=== PATIENT | male | born 1990 | race Hispanic/Latino ===

== ENCOUNTER 2020-01-20 12:49 | Emergency (ER) | payer OTHER, SELFPAY ==
--- OUTSIDE RECORDS SUMMARY | 2020-01-20 12:52 | XMS REPORT | Continuity of Care Document ---
:1990 Author Organization [facility] t Address [address] [place] [address] Care Team Providers Name Role Phone Aeysha FIELDS PHD, [facility] Attending Clinician [phone] Problems This patient has no known problems. Allergies, Adverse Reactions, Alerts This patient has no known allergies or adverse reactions. Medications This patient has no known medications. Procedures This patient has no known procedures. Encounters Start End Encounter Admission Attending Care Care Encounter Source Date/Time Date/Time Type Type Clinicians Facility Department ID 2018-11-07 2018-11-07 Office VIRGIL Hodge [id number] 14:00:49 15:04:26 Visit [facility] [id number] [facility] [id number] Results This patient has no known results.
[2020-01-20 16:23] LABS: Basophils % 0.4 % (0-1.3); Hematocrit 43.3 % (39.6-49.0); Lymphocytes % 10.3 % (15.3-44.8); MPV 6.8 fL (7.6-11.3); RBC Red Blood Cell Count 5.31 M/uL (4.33-5.43)
[2020-01-20] MEDS ORDERED: NA CHLORIDE 0.9% 1,000 ML ONE (16:24)
[2020-01-20] MEDS ORDERED: ONDANSETRON 4 MG/2 ML VIAL ONE (16:24)
[2020-01-20] MEDS ORDERED: FAMOTIDINE 20 MG/2 ML VIAL IV ONE (16:24)
[2020-01-20 16:38] LABS: Albumin 3.9 g/dL (3.4-5.0); Bilirubin Direct 0.2 mg/dL (0-0.2); Bilirubin Total 0.8 mg/dL (0.2-1.0); Potassium 3.5 mmol/L (3.5-5.1); Protein, Total 8.1 g/dL (6.4-8.2)
--- NOTE | 2020-01-20 16:47 | ER ---
Nurse's Notes [facility] Name: Francisco J Ash Age: 29 yrs Sex: Male : 1990 Arrival Date: 01/20/2020 Time: 12:51 Bed 28 Private MD: Diagnosis: Nausea and vomiting;Diarrhea, unspecified Presentation: 01/19 13:01 Chief complaint: Patient states: abd pain, nausea, vomitng and diarrhea since Saturday dm5 Pm. Pt reports vomiting 4 times since midnight and 6 instances of diarrhea since midnight. Coronavirus screen: Client denies travel out of the [place] in the last 14 days. diarrhea, nausea, vomiting. Client presents with at least one sign or symptom that may indicate coronavirus-19. Standard/surgical mask placed on the client. Ebola Screen: Patient negative for fever greater than or equal to 101.5 degrees Fahrenheit, and additional compatible Ebola Virus Disease symptoms Patient denies exposure to infectious person. Patient denies travel to an Ebola-affected area in the 21 days before illness onset. No symptoms or risks identified at this time. Initial Sepsis Screen: Does the patient meet any 2 criteria? HR > 90 bpm. No. Patient's initial sepsis screen is negative. Does the patient have a suspected source of infection? Yes: Acute abdominal pain. Risk Assessment: Do you want to hurt yourself or someone else? Patient reports no desire to harm self or others. Onset of symptoms was January 18, 2020. 13:01 Method Of Arrival: Ambulatory dm5 13:01 Acuity: BEATRIZ 3 dm5 Historical: - Allergies: 13:03 No Known Allergies; dm5 - Immunization history:: Adult Immunizations up to date. - Social history:: Smoking status: Patient denies any tobacco usage or history of. Screenin:06 Abuse screen: Denies threats or abuse. Denies injuries from another. Nutritional aj1 screening: No deficits noted. Tuberculosis screening: No symptoms or risk factors identified. 17:47 Fall Risk None identified. aj1 Assessment: 16:06 General: Appears in no apparent distress. comfortable, Behavior is calm, cooperative, aj1 appropriate for age. Pain: Denies pain. Neuro: Level of Consciousness is awake, alert, obeys commands, Oriented to person, place, time, situation. Cardiovascular: Patient's skin is warm and dry. Respiratory: Airway is patent Respiratory effort is even, unlabored, Respiratory pattern is regular, symmetrical. GI: Abdomen is non-distended, Bowel sounds present X 4 quads. Abd is soft and non tender X 4 quads. Reports diarrhea, incontinence, nausea, vomiting, and abdominal pain that has now resolved. : No signs and/or symptoms were reported regarding the genitourinary system. EENT: No signs and/or symptoms were reported regarding the EENT system. Derm: No signs and/or symptoms reported regarding the dermatologic system. Skin is pink, warm \T\ dry. normal. Musculoskeletal: No signs and/or symptoms reported regarding the musculoskeletal system. Circulation, motion, and sensation intact. 16:45 Reassessment: Patient appears in no apparent distress at this time. No changes from aj1 previously documented assessment. Patient and/or family updated on plan of care and expected duration. Pain level reassessed. Patient is alert, oriented x 3, equal unlabored respirations, skin warm/dry/pink. 17:25 Reassessment: PO Challenge initiated. aj1 17:47 Reassessment: Patient tolerated PO challenge. aj1 Vital Signs: 13:01 BP 131 / 87; Pulse 108; Resp 18; Temp 98.2; Pulse Ox 96% on R/A; Weight 117.93 kg; dm5 Height 6 ft. 1 in. (185.42 cm); Pain 5/10; 16:06 BP 121 / 79; Pulse 100; Resp 18; Pulse Ox 96% on R/A; aj1 16:45 BP 124 / 83; Pulse 96; Resp 18; Pulse Ox 97% on R/A; aj1 13:01 Body Mass Index 34.30 (117.93 kg, 185.42 cm) 5 ED Course: 12:51 Patient arrived in ED. as 13:03 Triage completed. dm5 15:07 Dieudonne Maier PA is PHCP. cp 15:07 Maximus Stern MD is Attending Physician. cp 15:09 Melly Bradley, EDUARDA is Primary Nurse. aj1 16:06 Patient has correct armband on for positive identification. Bed in low position. Call aj1 light in reach. Side rails up X 1. Pulse ox on. NIBP on. 16:06 No provider procedures requiring assistance completed. Inserted saline lock: 20 gauge aj1 in left antecubital area, using aseptic technique. Blood collected. 17:47 Arm band placed on. aj1 17:47 IV discontinued, intact, bleeding controlled, No redness/swelling at site. Pressure aj1 dressing applied. Administered Medications: 16:13 Drug: Pepcid 20 mg Route: IVP; Site: left antecubital; aj1 16:14 Drug: Zofran (Ondansetron) 4 mg Route: IVP; Site: left antecubital; aj1 16:14 Drug: NS 0.9% 1000 ml Route: IV; Rate: 1 bolus; Site: left antecubital; aj1 Outcome: 16:46 Discharge ordered by MD. cp 17:47 Discharged to home ambulatory. aj1 17:47 Condition: good 17:47 Discharge instructions given to patient, Instructed on discharge instructions, follow up and referral plans. medication usage, Demonstrated understanding of instructions, follow-up care, medications, Prescriptions given X 1. 17:48 Patient left the ED. aj1 Signatures: Melly Bradley RN RN aj1 Elizabeth Pavon RN RN dm5 Taina Rg Corey, PA PA cp
--- NOTE | 2020-01-20 16:47 | EDPHYS ---
Physician Documentation [facility] Name: Francisco J Ash Age: 29 yrs Sex: Male : 1990 Arrival Date: 01/20/2020 Time: 12:51 Bed 28 Private MD: ED Physician Maximus Stern HPI: 01/19 15:20 This 29 yrs old Male presents to ER via Ambulatory with complaints of cp Vomiting/Diarrhea, Abdominal Pain. 15:20 The patient presents to the emergency department with nausea, that is mild, vomiting, cp that is intermittent, described as bilious, diarrhea, that is intermittent. Onset: The symptoms/episode began/occurred 2 day(s) ago. Possible causes: bad food exposure, possibly bad restaurant food. Historical: - Allergies: 13:03 No Known Allergies; dm5 - Immunization history:: Adult Immunizations up to date. - Social history:: Smoking status: Patient denies any tobacco usage or history of. ROS: 15:30 Constitutional: Negative for body aches, chills, fever, poor PO intake. cp 15:30 Eyes: Negative for injury, pain, redness, and discharge. cp 15:30 ENT: Negative for drainage from ear(s), ear pain, sore throat, difficulty swallowing, difficulty handling secretions. 15:30 Cardiovascular: Negative for chest pain, palpitations. 15:30 Respiratory: Negative for cough, shortness of breath, wheezing. 15:30 Abdomen/GI: Positive for nausea, vomiting, and diarrhea, Negative for abdominal pain, constipation, hematemesis, black/tarry stool, rectal bleeding. 15:30 Skin: Negative for rash. 15:30 Neuro: Negative for altered mental status, headache, weakness. 15:30 All other systems are negative. Exam: 15:35 Constitutional: The patient appears in no acute distress, alert, awake, comfortable, cp non-toxic, well developed, well nourished. 15:35 Head/Face: Normocephalic, atraumatic. cp 15:35 Eyes: Periorbital structures: appear normal, Conjunctiva: normal, no exudate, no injection, Sclera: no appreciated abnormality, Lids and lashes: appear normal, bilaterally. 15:35 ENT: External ear(s): are unremarkable, Nose: is normal, Posterior pharynx: Airway: no evidence of obstruction, patent. 15:35 Chest/axilla: Inspection: normal, Palpation: is normal, no crepitus, no tenderness. 15:35 Cardiovascular: Rate: tachycardic, Rhythm: regular. 15:35 Respiratory: the patient does not display signs of respiratory distress, Respirations: normal, no use of accessory muscles, no retractions, labored breathing, is not present, Breath sounds: are clear throughout, no decreased breath sounds. 15:35 Abdomen/GI: Inspection: abdomen appears normal, Bowel sounds: active, all quadrants, Palpation: abdomen is soft and non-tender, in all quadrants, rebound tenderness, is not appreciated, voluntary guarding, is not appreciated, involuntary guarding, is not appreciated. 15:35 Back: pain, is absent, ROM is normal. Vital Signs: 13:01 BP 131 / 87; Pulse 108; Resp 18; Temp 98.2; Pulse Ox 96% on R/A; Weight 117.93 kg; dm5 Height 6 ft. 1 in. (185.42 cm); Pain 5/10; 16:06 BP 121 / 79; Pulse 100; Resp 18; Pulse Ox 96% on R/A; aj1 16:45 BP 124 / 83; Pulse 96; Resp 18; Pulse Ox 97% on R/A; aj1 13:01 Body Mass Index 34.30 (117.93 kg, 185.42 cm) dm5 MDM: 15:11 Patient medically screened. 15:35 Differential diagnosis: gastritis, cholecystitis, pancreatitis, appendicitis, viral cp gastroenteritis, gastroenteritis. 16:45 Data reviewed: vital signs, nurses notes, lab test result(s), and as a result, I will cp discharge patient. 01/19 15:17 Order name: Basic Metabolic Panel; Complete Time: 16:43 cp 01/19 15: Order name: CBC with Diff; Complete Time: 16:29 cp 01/19 16:29 Interpretation: Normal except: MPV 6.8; MIRIAN% 81.7; LYM% 10.3. cp 01/19 15:17 Order name: Hepatic Function; Complete Time: 16:43 cp 01/19 15:17 Order name: Lipase; Complete Time: 16:43 01/19 15: Order name: IV Saline Lock; Complete Time: 16:05 01/19 15:17 Order name: Labs collected and sent; Complete Time: 16:05 cp 01/19 16:45 Order name: PO challenge; Complete Time: 17:37 cp Administered Medications: 16:13 Drug: Pepcid 20 mg Route: IVP; Site: left antecubital; aj1 16:14 Drug: Zofran (Ondansetron) 4 mg Route: IVP; Site: left antecubital; aj1 16:14 Drug: NS 0.9% 1000 ml Route: IV; Rate: 1 bolus; Site: left antecubital; aj Disposition: 18:59 Co-signature as Attending Physician, Maximus Stern MD. rn Disposition: 01/20/20 16:46 Discharged to Home. Impression: Nausea and vomiting, Diarrhea, unspecified. - Condition is Stable. - Discharge Instructions: Food Choices to Help Relieve Diarrhea, Adult, Diarrhea, Adult, Nausea and Vomiting, Adult. - Prescriptions for Zofran 4 mg Oral Tablet - take 1 tablet by ORAL route every 12 hours As needed; 20 tablet. - Work release form, Medication Reconciliation Form, Thank You Letter, Antibiotic Education, Prescription Opioid Use form. - Follow up: Private Physician; When: 2 - 3 days; Reason: Worsening of condition. - Problem is new. - Symptoms have improved. Signatures: Dispatcher [employer] EDMelly Bettencourt RN RN aj1 Elizabeth Pavon RN RN dm5 Maximus Stern MD MD rn Page, Corey, PA PA cp Corrections: (The following items were deleted from the chart) 17:48 16:46 01/20/2020 16:46 Discharged to Home. Impression: Nausea and vomiting; Diarrhea, aj1 unspecified. Condition is Stable. Forms are Medication Reconciliation Form, Thank You Letter, Antibiotic Education, Prescription Opioid Use. Follow up: Private Physician; When: 2 - 3 days; Reason: Worsening of condition. Problem is new. Symptoms have improved. cp
[2020-01-20 23:07] VITALS: TEMP 98.2
[2020-01-20 23:10] VITALS: BP 124/83; O2SAT 97
== END 2020-01-20 17:48 | disposition home or self-care (01) ==
LOC: ER 12:49
DX: R19.7 Diarrhea, unspecified (principal)
CPT/HCPCS: 36415; 80048; 80076; 83690; 85025; 96374; 96375; 99284; J2405; J7030

== ENCOUNTER 2020-01-24 07:51 | Emergency (ER) | payer SELFPAY ==
--- OUTSIDE RECORDS SUMMARY | 2020-01-24 07:57 | XMS REPORT | Continuity of Care Document ---
:1990 Author Organization [facility] t Address [address] [place] [address] Care Team Providers Name Role Phone Ayesha FIELDS PHD, [facility] Attending Clinician [phone] Problems This patient has no known problems. Allergies, Adverse Reactions, Alerts This patient has no known allergies or adverse reactions. Medications This patient has no known medications. Procedures This patient has no known procedures. Encounters Start End Encounter Admission Attending Care Care Encounter Source Date/Time Date/Time Type Type Clinicians Facility Department ID 2018-11-07 2018-11-07 Office VIRGIL Hodge [id number] 14:00:49 15:04:26 Visit [facility] [id number] [facility] [id number] Results This patient has no known results.
[2020-01-24] MEDS ORDERED: NA CHLORIDE 0.9% 1,000 ML ONE (08:32)
[2020-01-24] MEDS ORDERED: ONDANSETRON 4 MG/2 ML VIAL ONE (08:32)
[2020-01-24 09:01] LABS: ALT/SGPT 32 U/L (12-78); AST/SGOT 19 U/L (15-37); Albumin 3.9 g/dL (3.4-5.0); Alkaline Phosphatase 121 U/L (45-117); BUN Blood Urea Nitrogen 9 mg/dL (7-18); Bicarbonate 25 mmol/L (21-32); Bilirubin Direct 0.2 mg/dL (0-0.2); Bilirubin Total 0.8 mg/dL (0.2-1.0); Glucose Level 130 mg/dL (74-106); Lipase 81 U/L (73-393); Potassium 3.7 mmol/L (3.5-5.1); Protein, Total 8.3 g/dL (6.4-8.2); Sodium Level 136 mmol/L (136-145)
--- NOTE | 2020-01-24 09:36 | RAD REPORT ---
EXAM DESCRIPTION: CTAbdomen Pelvis W Contrast - 01/24/2020 9:31 am CLINICAL HISTORY: Abdominal pain. nausea/vomiting/diarrhea COMPARISON: <Comparisons> TECHNIQUE: Biphasic CT imaging of the abdomen and pelvis was performed with 100 ml non-ionic IV cont rast. All CT scans are performed using dose optimization technique as appropriate and may include automated exposure control or mA/KV adjustment according to patient size. FINDINGS: The lung bases are clear. The liver, spleen, pancreas, adrenal glands and kidneys are within normal limits. No bowel obstruction, free air, free fluid or abscess. Moderate colonic wall thickening suspicious fo r a moderate colitis. The appendix is not identified as a discrete structure, however, no secondary f indings of appendicitis are identified. No evidence of significant lymphadenopathy. No suspicious bony findings. IMPRESSION: Moderate colitis is suspected, most significant in the rectosigmoid colon.
[2020-01-24 10:13] LABS: Absolute Lymphocytes (CBC) 1.6 K/uL (0.7-4.9); Basophils % 0.4 % (0-1.3); Hematocrit 44.4 % (39.6-49.0); MPV 6.8 fL (7.6-11.3); RBC Red Blood Cell Count 5.42 M/uL (4.33-5.43)
--- NOTE | 2020-01-24 10:13 | EDPHYS ---
Physician Documentation [facility] Name: Francisco J Ash Age: 29 yrs Sex: Male : 1990 Arrival Date: 01/24/2020 Time: 07:55 Bed 4 Private MD: Melissa [place] ED Physician Maximus Stern HPI: 01/23 08:37 This 29 yrs old Male presents to ER via Ambulatory with complaints of rn Nausea/Vomiting/Diarrhea, Headache. 08:37 The patient presents to the emergency department with nausea, vomiting, diarrhea. rn 08:37 Onset: The symptoms/episode began/occurred 2 day(s) ago. Possible causes: unknown. The rn symptoms are aggravated by nothing. The symptoms are alleviated by nothing. Associated signs and symptoms: Pertinent positives: abdominal pain, diarrhea, nausea, vomiting, Pertinent negatives: anorexia, fever, GI bleeding. Severity of symptoms: At their worst the symptoms were moderate in the emergency department the symptoms have improved. The patient has not experienced similar symptoms in the past. The patient has been recently seen at the [facility] Emergency Department. Reports nausea/vomiting/diarrhea, seen here recently, bloodwork ok, states felt better, but still having nausea and diarrhea, work told him to come and get checked out again. Feels like symptoms are slowly improving. No fever. . Historical: - Allergies: 08:04 No Known Allergies; sv - Family history:: not pertinent. - Social history:: Smoking status: Patient denies any tobacco usage or history of. - Hospitalizations: : No recent hospitalization is reported. ROS: 08:37 Constitutional: Negative for fever, chills, and weight loss, Eyes: Negative for injury, rn pain, redness, and discharge, Neck: Negative for injury, pain, and swelling, Cardiovascular: Negative for chest pain, palpitations, and edema, Respiratory: Negative for shortness of breath, cough, wheezing, and pleuritic chest pain, Abdomen/GI: + abd pain/nausea/vomiting MS/Extremity: Negative for injury and deformity, Skin: Negative for injury, rash, and discoloration, Neuro: Negative for weakness, numbness, tingling, and seizure. Exam: 08:37 Constitutional: This is a well developed, well nourished patient who is awake, alert, rn and in no acute distress. Head/Face: Normocephalic, atraumatic. ENT: MMM Neck: Trachea midline, no thyromegaly or masses palpated, and no cervical lymphadenopathy. Supple, full range of motion without nuchal rigidity, or vertebral point tenderness. No Meningismus. Chest/axilla: Normal chest wall appearance and motion. Nontender with no deformity. No lesions are appreciated. Cardiovascular: Tachycardic, regular Respiratory: Lungs have equal breath sounds bilaterally, clear to auscultation and percussion. No rales, rhonchi or wheezes noted. No increased work of breathing, no retractions or nasal flaring. Abdomen/GI: Soft, non-tender, no masses Skin: Warm, dry MS/ Extremity: Pulses equal, no cyanosis. Neurovascular intact. Full, normal range of motion. Equal circumference. Neuro: Awake and alert, GCS 15 Vital Signs: 08:00 BP 140 / 98; Pulse 115; Resp 18; Temp 98.8(O); Pulse Ox 95% on R/A; vg1 08:02 BP 136 / 90; Pulse 122; Resp 18; Pulse Ox 96% ; sv 08:30 BP 134 / 83; Pulse 91; Resp 18; Pulse Ox 98% on R/A; vg1 09:07 BP 130 / 85; Pulse 85; Resp 16; Pulse Ox 99% on R/A; vg1 10:13 BP 124 / 73; Pulse 74; Resp 16; Pulse Ox 99% on R/A; vg1 11:00 BP 118 / 74; Pulse 79; Resp 14; Pulse Ox 99% on R/A; vg1 11:30 BP 117 / 76; Pulse 87; Resp 16; Pulse Ox 100% on R/A; vg1 MDM: 08:00 Patient medically screened. rn 10:10 Differential diagnosis: Nonspecific abd pain, diverticulitis, viral gastroenteritis, rn gastroenteritis, colitis. Data reviewed: vital signs, nurses notes, lab test result(s), radiologic studies, CT scan, and as a result, I will discharge patient. Counseling: I had a detailed discussion with the patient and/or guardian regarding: the historical points, exam findings, and any diagnostic results supporting the discharge/admit diagnosis, lab results, radiology results, the need for outpatient follow up, to return to the emergency department if symptoms worsen or persist or if there are any questions or concerns that arise at home. Response to treatment: the patient's symptoms have markedly improved after treatment, and as a result, I will discharge patient. Special discussion: Based on the patient's Hx, exam, and Dx evaluation, there is no indication for emergent surgery or inpatient Tx. It is understood by the patient/guardian that if the Sx's persist or worsen they need to return immediately for re-evaluation. I discussed with the patient/guardian in detail that at this point there is no indication for admission to the hospital. It is understood, however, that if the symptoms persist or worsen the patient needs to return immediately for re-evaluation. Based on the history and exam findings, there is no indication for further emergent testing or inpatient evaluation. I discussed with the patient/guardian the need to see the tavern car attendant for further evaluation of the symptoms. ED course: NO hx of IBD in family or patient, will treat with abx given return visit and persistent but improving vomiting/diarrhea. Will dc home with GI f/u. . 01/23 08:08 Order name: Basic Metabolic Panel; Complete Time: 09:25 rn 01/23 08:08 Order name: CBC with Diff; Complete Time: 10:17 rn 01/23 08:08 Order name: Hepatic Function; Complete Time: 09:25 rn 01/23 08:08 Order name: Lipase; Complete Time: 09:25 rn 01/23 08:08 Order name: CT Abd/Pelvis - IV Contrast Only; Complete Time: 09:39 rn 01/23 08:08 Order name: IV Saline Lock; Complete Time: 08:38 rn 01/23 08:08 Order name: Labs collected and sent; Complete Time: 08:38 rn Administered Medications: 08:30 Drug: NS 0.9% 1000 ml Route: IV; Rate: 1000 ml; Site: right antecubital; vg1 10:16 Follow up: IV Status: Completed infusion; IV Intake: 1000ml vg1 08:30 Drug: Zofran (Ondansetron) 4 mg Route: IVP; Site: right antecubital; vg1 09:58 Follow up: Response: Nausea is decreased vg1 10:16 Drug: Flagyl 500 mg Volume: 100 ml; Route: IVPB; Rate: 200 ml/hr; Infused Over: 30 vg1 mins; Site: right antecubital; 10:51 Follow up: IV Status: Completed infusion; IV Intake: 100ml vg1 10:45 Drug: Cipro 400 mg Volume: 200 ml; Route: IVPB; Infused Over: 60 mins; Site: right vg1 antecubital; 11:59 Follow up: IV Status: Completed infusion; IV Intake: 200ml vg1 Disposition: 01/24/20 10:12 Discharged to Home. Impression: Colitis, Dehydration. - Condition is Stable. - Discharge Instructions: Dehydration, Adult, Colitis. - Prescriptions for Cipro 500 mg Oral Tablet - take 1 tablet by ORAL route every 12 hours for 14 days; 14 tablet. Flagyl 500 mg Oral Tablet - take 1 tablet by ORAL route every 12 hours for 7 days; 14 tablet. Zofran ODT 4 mg Oral tablet,disintegrating - place 1 tablet by TRANSLINGUAL route every 8 hours; 15 tablet. - Medication Reconciliation Form, Thank You Letter, Antibiotic Education, Prescription Opioid Use, Work release form form. - Follow up: Hunter Modi MD; When: As needed; Reason: Recheck today's complaints, Re-evaluation by your physician. - Problem is an ongoing problem. - Symptoms have improved. Signatures: Dispatcher [employer] EDMelissa Braxton RN Maximus Silverman MD MD rn Garcia, Victoria, RN RN vg1 Corrections: (The following items were deleted from the chart) 11:57 10:12 01/24/2020 10:12 Discharged to Home. Impression: Colitis; Dehydration. Condition vg1 is Stable. Forms are Medication Reconciliation Form, Thank You Letter, Antibiotic Education, Prescription Opioid Use. Follow up: Hunter Modi; When: As needed; Reason: Recheck today's complaints, Re-evaluation by your physician. Problem is an ongoing problem. Symptoms have improved. rn
--- NOTE | 2020-01-24 10:13 | ER ---
Nurse's Notes [facility] Name: Francisco J Ash Age: 29 yrs Sex: Male : 1990 Arrival Date: 01/24/2020 Time: 07:55 Bed 4 Private MD: Melissa Colorado Diagnosis: Colitis;Dehydration Presentation: 01/23 08:02 Chief complaint: Patient states: was seen here on Sat for the same symptoms. Still sv remains with n/v/d/left sided headache. Is able to keep fluids down but has had decreased appetite for 2 days. Coronavirus screen: Client denies travel out of the [place] in the last 14 days. At this time, the client does not indicate any symptoms associated with coronavirus-19. Ebola Screen: No symptoms or risks identified at this time. Risk Assessment: Do you want to hurt yourself or someone else? Patient reports no desire to harm self or others. Onset of symptoms was January 20, 2020. 08:02 Method Of Arrival: Ambulatory sv 08:02 Acuity: BEATRIZ 2 sv 08:05 Initial Sepsis Screen: Does the patient meet any 2 criteria? No. Patient's initial vg1 sepsis screen is negative. Does the patient have a suspected source of infection? No. Patient's initial sepsis screen is negative. Historical: - Allergies: 08:04 No Known Allergies; sv - Family history:: not pertinent. - Social history:: Smoking status: Patient denies any tobacco usage or history of. - Hospitalizations: : No recent hospitalization is reported. Screenin:00 Abuse screen: Denies threats or abuse. Nutritional screening: No deficits noted. vg1 Tuberculosis screening: No symptoms or risk factors identified. Fall Risk No fall in past 12 months (0 pts). No secondary diagnosis (0 pts). IV access (20 points). Ambulatory Aid- None/Bed Rest/Nurse Assist (0 pts). Gait- Normal/Bed Rest/Wheelchair (0 pts) Mental Status- Oriented to own ability (0 pts). Total Storm Fall Scale indicates No Risk (0-24 pts). Assessment: 08:00 General: Appears in no apparent distress. comfortable, Behavior is calm, cooperative. vg1 Pain: Complains of pain in abdomen Pain currently is 3 out of 10 on a pain scale. Pain began Saturday, January 18, 2020. Neuro: Level of Consciousness is awake, alert, obeys commands, Oriented to person, place, time, situation. Cardiovascular: Capillary refill < 3 seconds Patient's skin is warm and dry. Respiratory: Airway is patent Respiratory effort is even, unlabored, Respiratory pattern is regular, symmetrical. GI: Last BM was January 24, 2020. at 06:00. Bowel sounds hypoactive in x4 quads Reports diarrhea, nausea, vomiting. : No signs and/or symptoms were reported regarding the genitourinary system. EENT: No signs and/or symptoms were reported regarding the EENT system. Derm: Skin is pink, warm \T\ dry. Musculoskeletal: Range of motion: intact in all extremities. 09:06 Reassessment: Patient appears in no apparent distress at this time. Patient and/or vg1 family updated on plan of care and expected duration. Pain level reassessed. Patient is alert, oriented x 3, equal unlabored respirations, skin warm/dry/pink. 10:15 Reassessment: Pending d/c due to antibiotic infusion. vg1 10:17 Reassessment: Patient appears in no apparent distress at this time. Patient and/or vg1 family updated on plan of care and expected duration. Pain level reassessed. Patient is alert, oriented x 3, equal unlabored respirations, skin warm/dry/pink. 11:12 Reassessment: Patient appears in no apparent distress at this time. Patient and/or vg1 family updated on plan of care and expected duration. Pain level reassessed. Patient is alert, oriented x 3, equal unlabored respirations, skin warm/dry/pink. Resting in bed with eyes closed. Vital Signs: 08:00 BP 140 / 98; Pulse 115; Resp 18; Temp 98.8(O); Pulse Ox 95% on R/A; vg1 08:02 BP 136 / 90; Pulse 122; Resp 18; Pulse Ox 96% ; sv 08:30 BP 134 / 83; Pulse 91; Resp 18; Pulse Ox 98% on R/A; vg1 09:07 BP 130 / 85; Pulse 85; Resp 16; Pulse Ox 99% on R/A; vg1 10:13 BP 124 / 73; Pulse 74; Resp 16; Pulse Ox 99% on R/A; vg1 11:00 BP 118 / 74; Pulse 79; Resp 14; Pulse Ox 99% on R/A; vg1 11:30 BP 117 / 76; Pulse 87; Resp 16; Pulse Ox 100% on R/A; vg1 ED Course: 07:55 Patient arrived in ED. mr 07:55 Melissa Colorado is Private Physician. mr 07:59 Autumn Carvalho, RN is Primary Nurse. vg1 08:00 Maximus Stern MD is Attending Physician. rn 08:04 Triage completed. sv 08:04 Arm band placed on. sv 08:25 Inserted saline lock: 20 gauge in right antecubital area, using aseptic technique. vg1 Blood collected. Flushed right antecubital with 2 ml normal saline. 08:30 Patient has correct armband on for positive identification. Bed in low position. Call vg1 light in reach. Pulse ox on. NIBP on. Door closed. 08:35 Initial lab(s) drawn, by me, sent to lab. vg1 09:31 CT Abd/Pelvis - IV Contrast Only In Process Unspecified. EDMS 10:11 Hunter Modi MD is Referral Physician. rn 11:53 No provider procedures requiring assistance completed. IV discontinued, intact, vg1 bleeding controlled, No redness/swelling at site. Pressure dressing applied. Administered Medications: 08:30 Drug: NS 0.9% 1000 ml Route: IV; Rate: 1000 ml; Site: right antecubital; vg1 10:16 Follow up: IV Status: Completed infusion; IV Intake: 1000ml vg1 08:30 Drug: Zofran (Ondansetron) 4 mg Route: IVP; Site: right antecubital; vg1 09:58 Follow up: Response: Nausea is decreased vg1 10:16 Drug: Flagyl 500 mg Volume: 100 ml; Route: IVPB; Rate: 200 ml/hr; Infused Over: 30 vg1 mins; Site: right antecubital; 10:51 Follow up: IV Status: Completed infusion; IV Intake: 100ml vg1 10:45 Drug: Cipro 400 mg Volume: 200 ml; Route: IVPB; Infused Over: 60 mins; Site: right vg1 antecubital; 11:59 Follow up: IV Status: Completed infusion; IV Intake: 200ml vg1 Intake: 10:16 IV: 1000ml; Total: 1000ml. vg1 10:51 IV: 100ml; Total: 1100ml. vg1 11:59 IV: 200ml; Total: 1300ml. vg1 Outcome: 10:12 Discharge ordered by . rn 11:53 Discharged to home ambulatory. vg1 11:53 Condition: good 11:53 Discharge instructions given to patient, Instructed on discharge instructions, follow up and referral plans. medication usage, Demonstrated understanding of instructions, follow-up care, medications, Prescriptions given X 3. 11:57 Patient left the ED. vg1 Signatures: Dispatcher [employer] EDMS Melissa Doherty RN RN alejo LeonardoaSherley Roman, MD MD rn Garcia, EDUARDA Leyva RN vg1 Corrections: (The following items were deleted from the chart) 08:04 08:02 Chief complaint: Patient states: was seen here on Wed for the same symptoms. sv Still remains with n/v/d/left sided headache. sv 08:29 08:02 Acuity: BEATRIZ 3 sv sv
[2020-01-24] MEDS ORDERED: CIPROFLOXACIN 400mg IV 400 MG/200 ML BAG IV ONE (10:14)
[2020-01-24] MEDS ORDERED: METRONIDAZOLE 500mg IVPB 500 MG/100 ML BAG IV ONE (10:15)
[2020-01-24 16:09] VITALS: TEMP 98.8
[2020-01-24 16:25] VITALS: BP 117/76; O2SAT 100
== END 2020-01-24 11:57 | disposition home or self-care (01) ==
LOC: ER 07:51
DX: K52.9 Noninfective gastroenteritis and colitis, unspecified (principal); E86.0 Dehydration
CPT/HCPCS: 36415; 74177; 80048; 80076; 83690; 85025; 96361; 96365; 96375; 99284; J0744; J2405; J7030; Q9967